=== PATIENT | female | born 1980 | race Caucasian/White ===

== ENCOUNTER 2017-02-18 08:20 | Emergency (ER) | payer BC ==
[2017-02-18] MEDS ORDERED: Sodium Chloride 0.9% 1,000 ML IV ONE ×2 (08:57→10:22)
[2017-02-18] MEDS ORDERED: Ondansetron 4 MG/2 ML SDV IVPUSH ONE ×2 (08:57→10:22)
[2017-02-18] MEDS ORDERED: Sodium Chloride 0.9% 10 ML Syringe FLUSH PRN (08:57)
--- NOTE | 2017-02-18 09:41 | EDM.PDOC ---
ED HPI GENERAL MEDICAL PROBLEM - General Chief Complaint: Gastrointestinal Problem Stated Complaint: THROWING UP FOR FOUR DAYS Time Seen by Provider: 02/18/17 08:33 Source of Information: Reports: Patient History Limitations: Reports: No Limitations - History of Present Illness INITIAL COMMENTS - FREE TEXT/NARRATIVE: The patient is a 36-year-old female with a chief complaint of vomiting. She's been ill for about 5 days. She's had many episodes of vomiting per day. States that she vomits about once every 4 hours. Hasn't been able to keep liquids or solids down for the last day or so. No diarrhea. She did have a normal bowel movement this morning. No abdominal pain. She sometimes has some abdominal cramping or soreness with vomiting but doesn't have abdominal pain right now. Denies dysuria or hematuria. No fever. No sick contacts. No recent travel. No known exposure to contaminated food or water. No cough or chest pain or shortness of breath. Last menstrual period was a few days ago. - Related Data Allergies Allergy/AdvReac Type Severity Reaction Status Date / Time No Known Allergies Allergy Verified 07/11/16 15:23 Home Meds: Home Meds Cetirizine [ZyrTEC] 10 mg PO Q3D 07/11/16 [History] Ondansetron [Zofran ODT] 4 mg PO Q4H PRN #16 tab.dis 02/18/17 [Rx] Past Medical History Gastrointestinal History: Reports: GERD CASH PERSON History: Reports: - Past Surgical History Female Surgical History: Reports: Other (See Below) Social & Family History - Tobacco Use Smoking Status *Q: Never Smoker Second Hand Smoke Exposure: No - Caffeine Use Caffeine Use: Reports: Coffee - Recreational Drug Use Recreational Drug Use: No ED ROS GENERAL - Review of Systems Review Of Systems: See Below Constitutional: Reports: Malaise, Weakness, Fatigue. Denies: Fever HEENT: Reports: No Symptoms Respiratory: Denies: Shortness of Breath, Cough Cardiovascular: Denies: Chest Pain Endocrine: Reports: No Symptoms GI/Abdominal: Reports: Nausea, Vomiting. Denies: Abdominal Pain : Denies: Dysuria Musculoskeletal: Reports: No Symptoms Skin: Reports: No Symptoms Neurological: Reports: No Symptoms ED EXAM, GI/ABD - Physical Exam Exam: See Below Exam Limited By: No Limitations General Appearance: Alert, WD/WN, No Apparent Distress Eyes: Bilateral: Normal Appearance Ears: Normal External Exam Nose: Normal Inspection Throat/Mouth: Normal Inspection, Normal Voice, No Airway Compromise Head: Atraumatic, Normocephalic Neck: Normal Inspection, Supple, Non-Tender, Full Range of Motion Respiratory/Chest: No Respiratory Distress, Lungs Clear, Normal Breath Sounds Cardiovascular: Normal Peripheral Pulses, Regular Rate, Rhythm, No Murmur GI/Abdominal Exam: Soft, Non-Tender, No Distention. No: Rebound Back Exam: Normal Inspection. No: CVA Tenderness (L), CVA Tenderness (R) Extremities: Normal Inspection Neurological: Alert, Oriented, Normal Cognition Psychiatric: Normal Affect, Normal Mood Skin Exam: Warm, Dry, Intact, Normal Color, No Rash Course - Vital Signs Last Recorded V/S: Last Vital Signs Temp 36.7 C 02/18/17 08:34 Pulse 78 02/18/17 11:43 Resp 12 02/18/17 11:43 BP 107/62 02/18/17 11:43 Pulse Ox 100 02/18/17 11:43 Orthostatic Blood Pressure [ 109/70 Standing] Orthostatic Blood Pressure [ 112/63 Sitting] Orthostatic Blood Pressure [ 110/71 Supine] - Orders/Labs/Meds Orders: Active Orders 24 hr Category Date Time Status Peripheral IV Care [RC] . DIRECTED Care 02/18/17 08:57 Active Peripheral IV Insertion Adult [OM.PC] Routine Oth 02/18/17 08:57 Ordered Labs: Laboratory Tests 02/18/17 02/18/17 02/18/17 Range/Units 09:07 09:07 09:07 WBC 7.44 (3.98-10.04) K/mm3 RBC 3.83 L (3.98-5.22) M/mm3 Hgb 12.8 (11.2-15.7) gm/L Hct 37.3 (34.1-44.9) % MCV 97.4 H (79.4-94.8) fl MCH 33.4 H (25.6-32.2) pg MCHC 34.3 (32.2-35.5) g/dl RDW Std Deviation 40.5 (36.4-46.3) fL Plt Count 215 (182-369) K/mm3 MPV 10.1 (9.4-12.3) fl Neut % (Auto) 74.5 H (34.0-71.1) % Lymph % (Auto) 18.3 L (19.3-51.7) % Bennett % (Auto) 6.5 (4.7-12.5) % Eos % (Auto) 0.5 L (0.7-5.8) Baso % (Auto) 0.1 (0.1-1.2) % Neut # (Auto) 5.54 (1.56-6.13) K/mm3 Lymph # (Auto) 1.36 (1.18-3.74) K/mm3 Bennett # (Auto) 0.48 H (0.24-0.36) K/mm3 Eos # (Auto) 0.04 (0.04-0.36) K/mm3 Baso # (Auto) 0.01 (0.01-0.08) K/mm3 Sodium 139 (136-145) mEq/L Potassium 3.3 L (3.5-5.1) mEq/L Chloride 103 (98-107) mEq/L Carbon Dioxide 26 (21-32) mEq/L Anion Gap 13.3 (5-15) BUN 11 (7-18) mg/dL Creatinine 1.0 (0.55-1.02) mg/dL Est Cr Clr Drug Dosing TNP Estimated GFR (MDRD) > 60 (>60) mL/min BUN/Creatinine Ratio 11.0 L (14-18) Glucose 98 (74-106) mg/dL Calcium 9.0 (8.5-10.1) mg/dL Total Bilirubin 0.6 (0.2-1.0) mg/dL AST 12 L (15-37) U/L ALT 18 (14-59) U/L Alkaline Phosphatase 37 L (46-116) U/L Total Protein 7.8 (6.4-8.2) g/dl Albumin 4.0 (3.4-5.0) g/dl Globulin 3.8 gm/dL Albumin/Globulin Ratio 1.1 (1-2) Lipase 136 (73-393) U/L HCG, Quant < 1.0 mIU/mL Urine Color (Yellow) Urine Appearance (Clear) Urine pH (5.0-8.0) Ur Specific [place] (1.005-1.030) Urine Protein (Negative) Urine Glucose (UA) (Negative) Urine Ketones (Negative) Urine Occult Blood (Negative) Urine Nitrite (Negative) Urine Bilirubin (Negative) Urine Urobilinogen (0.2-1.0) Ur Leukocyte Esterase (Negative) Urine RBC (0-5) /hpf Urine WBC (0-5) /hpf Ur Epithelial Cells (0-5) /hpf Urine Bacteria (FEW) /hpf Urine Mucus (FEW) /hpf 02/18/17 Range/Units 09:30 WBC (3.98-10.04) K/mm3 RBC (3.98-5.22) M/mm3 Hgb (11.2-15.7) gm/L Hct (34.1-44.9) % MCV (79.4-94.8) fl MCH (25.6-32.2) pg MCHC (32.2-35.5) g/dl RDW Std Deviation (36.4-46.3) fL Plt Count (182-369) K/mm3 MPV (9.4-12.3) fl Neut % (Auto) (34.0-71.1) % Lymph % (Auto) (19.3-51.7) % Bennett % (Auto) (4.7-12.5) % Eos % (Auto) (0.7-5.8) Baso % (Auto) (0.1-1.2) % Neut # (Auto) (1.56-6.13) K/mm3 Lymph # (Auto) (1.18-3.74) K/mm3 Bennett # (Auto) (0.24-0.36) K/mm3 Eos # (Auto) (0.04-0.36) K/mm3 Baso # (Auto) (0.01-0.08) K/mm3 Sodium (136-145) mEq/L Potassium (3.5-5.1) mEq/L Chloride (98-107) mEq/L Carbon Dioxide (21-32) mEq/L Anion Gap (5-15) BUN (7-18) mg/dL Creatinine (0.55-1.02) mg/dL Est Cr Clr Drug Dosing Estimated GFR (MDRD) (>60) mL/min BUN/Creatinine Ratio (14-18) Glucose (74-106) mg/dL Calcium (8.5-10.1) mg/dL Total Bilirubin (0.2-1.0) mg/dL AST (15-37) U/L ALT (14-59) U/L Alkaline Phosphatase (46-116) U/L Total Protein (6.4-8.2) g/dl Albumin (3.4-5.0) g/dl Globulin gm/dL Albumin/Globulin Ratio (1-2) Lipase (73-393) U/L HCG, Quant mIU/mL Urine Color Yellow (Yellow) Urine Appearance Clear (Clear) Urine pH 5.5 (5.0-8.0) Ur Specific [place] > or = 1.030 (1.005-1.030) Urine Protein 1+ H (Negative) Urine Glucose (UA) Negative (Negative) Urine Ketones 3+ H (Negative) Urine Occult Blood 1+ H (Negative) Urine Nitrite Negative (Negative) Urine Bilirubin 1+ H (Negative) Urine Urobilinogen 1.0 (0.2-1.0) Ur Leukocyte Esterase Negative (Negative) Urine RBC 5-10 H (0-5) /hpf Urine WBC 0-5 (0-5) /hpf Ur Epithelial Cells 0-5 (0-5) /hpf Urine Bacteria Few (FEW) /hpf Urine Mucus Many H (FEW) /hpf Meds: Medications Discontinued Medications Generic Name Dose Route Start Last Admin Trade Name Freq PRN Reason Stop Dose Admin Diphenhydramine HCl 25 mg 02/18/17 10:22 02/18/17 10:36 Benadryl IVPUSH 02/18/17 10:23 25 mg ONETIME ONE Administration Sodium Chloride 1,000 mls @ 1,000 mls/hr 02/18/17 08:57 02/18/17 09:20 Normal Saline IV 02/18/17 09:56 1,000 mls/hr ONETIME ONE Administration Sodium Chloride 1,000 mls @ 1,000 mls/hr 02/18/17 10:22 02/18/17 10:35 Normal Saline IV 02/18/17 11:21 1,000 mls/hr ONETIME ONE Administration Lorazepam 1 mg 02/18/17 10:58 02/18/17 11:17 Ativan IVPUSH 02/18/17 10:59 Not Given ONETIME ONE Metoclopramide HCl 10 mg 02/18/17 10:22 02/18/17 10:34 Reglan IVPUSH 02/18/17 10:23 10 mg ONETIME ONE Administration Ondansetron HCl 4 mg 02/18/17 08:57 02/18/17 09:17 Zofran IVPUSH 02/18/17 08:58 4 mg ONETIME ONE Administration Ondansetron HCl 4 mg 02/18/17 10:22 02/18/17 10:32 Zofran IVPUSH 02/18/17 10:23 4 mg ONETIME ONE Administration Sodium Chloride 10 ml 02/18/17 08:57 02/18/17 09:22 Saline Flush FLUSH 10 ml ASDIRECTED PRN Administration Keep Vein Open - Re-Assessments/Exams Free Text/Narrative Re-Assessment/Exam: 02/18/17 10:49 Labs are unremarkable except for ketonuria. Still nauseated after Zofran, additional Zofran as well as Reglan ordered. IV fluid rehydration in progress, we'll reassess. 02/18/17 15:07 Feels better after fluids and meds. Not vomiting at this time. Discussed return precautions. Reexamined abdomen, abdomen continues to be soft and nontender. Patient would like to go home. Departure - Departure Time of Disposition: 01:00 Disposition: Home, Self-Care 01 Clinical Impression: Dehydration Vomiting Qualifiers: Vomiting type: unspecified Vomiting Intractability: intractable Nausea presence : with nausea Qualified Code(s): R11.2 - Nausea with vomiting, unspecified - Discharge Information Prescriptions: Ondansetron [Zofran ODT] 4 mg PO Q4H PRN #16 tab.dis PRN Reason: Nausea Instructions: Dehydration, Adult, [id number] Referrals: PCP,None [Primary Care Provider] - Forms: ED Department Discharge Additional Instructions: 1. Take zofran (ondansetron) as needed for nausea 2. Drink plenty of fluids. Advance diet as tolerated once you have an appetite. 3. Return to the ED if you have worsening vomiting, abdominal pain, or other concerning symptoms 4. Otherwise follow up with primary doctor as needed. Call [phone] if you'd like to schedule here. - My Orders Last 24 Hours: My Active Orders 02/18/17 08:57 Peripheral IV Care [RC] . DIRECTED Peripheral IV Insertion Adult [OM.PC] Routine - Assessment/Plan Last 24 Hours: My Active Orders 02/18/17 08:57 Peripheral IV Care [RC] . DIRECTED Peripheral IV Insertion Adult [OM.PC] Routine
[2017-02-18] MEDS ORDERED: Metoclopramide 10 MG/2 ML SDV IVPUSH ONE (10:22)
[2017-02-18] MEDS ORDERED: diphenhydrAMINE 50 MG/ML SDV IVPUSH ONE (10:22)
--- NOTE | 2017-02-18 10:22 | CR ---
Abdomen: Supine and upright views of the abdomen were obtained. Comparison: No previous study. Bowel gas pattern is normal. No free air is seen. No abnormal calcifications or soft tissue abnormality is seen. Bony structures are unremarkable. Impression: 1. Unremarkable two-view abdominal x-ray. Diagnostic code #1
[2017-02-18] MEDS ORDERED: LORazepam 2 MG/ML MDV IVPUSH ONE (10:58)
[2017-02-18 11:47] VITALS: BP 107/62
== END 2017-02-18 11:49 | disposition home or self-care (01) ==
LOC: JD.ED 08:20
DX: E86.0 Dehydration (principal); R11.2 Nausea with vomiting, unspecified; K21.9 Gastro-esophageal reflux disease without esophagitis
CPT/HCPCS: 36415; 74020; 80053; 81001; 83690; 84702; 85025; 96361; 96374; 96375; 96376; 99284; J1200; J2405; J2765; J7040; J7050